=== PATIENT | male | born 1945 | race Caucasian/White ===

== ENCOUNTER 2017-02-03 08:17 | Day surgery (SDC) | payer MEDICARE, BC ==
--- NOTE | ~2017-02-03 | EGD ---
EGD REPORT [facility] [address] [place] [address] NAME: DUC MORA : 41 STATUS : REG [facility]#: [id number] AGE: 72 ADM/REG DATE : 02/03/17 MR#: [id number] REPORT SERV DATE: 02/03/17 DICTATED BY: JOHN ADIDSON DATE: 02/03/17 REPORT STATUS : Draft TRANSCRIBED BY: [employer] DATE: 02/03/17 [facility] Patient Name: Duc Mora Date of : 1945 Attending MD: JOHN ADDISON, Procedure Date No Time: 02/03/2017 Procedure: Colonoscopy Indications: Chronic diarrhea Referring MD: JOHNY VALDEZ Medicines: Monitored Anesthesia Care Complications: No immediate complications. Estimated blood loss: None. Procedure: Pre-Anesthesia Assessment: - ASA Grade Assessment: III - A patient with severe systemic disease. After I obtained informed consent, the scope was passed under direct vision. Throughout the procedure, the patient's blood pressure, pulse, and oxygen saturations were monitored continuously. The CF [id number] was introduced through the anus and advanced to the terminal ileum. The colonoscopy was performed without difficulty. The patient tolerated the procedure well. The quality of the bowel preparation was adequate. Findings: The perianal and digital rectal examinations were normal. The terminal ileum appeared normal. A sessile polyp was found in the cecum. The polyp was 2 mm in size. The polyp was removed with a cold biopsy forceps. Resection and retrieval were complete. Verification of patient identification for the specimen was done. Estimated blood loss was minimal. A sessile polyp was found in the ascending colon. The polyp was 5 mm in size. The polyp was removed with a cold snare. Resection and retrieval were complete. Verification of patient identification for the specimen was done. Estimated blood loss was minimal. A sessile polyp was found in the ascending colon. The polyp was 12 mm in size. The polyp was removed with a hot snare. Resection and retrieval were complete. Verification of patient identification for the specimen was done. Estimated blood loss was minimal. A sessile polyp was found in the ascending colon. The polyp was 7 mm in size. The polyp was removed with a hot snare. Resection and retrieval were complete. Verification of patient identification for the specimen was done. Estimated blood loss was minimal. Inflammation characterized by erythema, friability and serpentine ulcerations was found as large patches surrounded by normal mucosa in the transverse colon. This was moderate to severe in severity. Biopsies EGD REPORT [address] [place]. [address] NAME: DUC MORA : 41 STATUS : REG [facility] PAT#: [id number] AGE: 72 ADM/REG DATE : 02/03/17 MR#: [id number] REPORT SERV DATE: 02/03/17 DICTATED BY: JOHN ADDISON DATE: 02/03/17 REPORT STATUS : Draft TRANSCRIBED BY: [employer] DATE: 02/03/17 were taken with a cold forceps for histology. Verification of patient identification for the specimen was done. Estimated blood loss was minimal. Two sessile polyps were found in the transverse colon. These were within areas of inflammation. The polyps were 12 to 15 mm in size. These polyps were removed with a hot snare. Resection and retrieval were complete. Verification of patient identification for the specimen was done. Estimated blood loss was minimal. Three sessile polyps were found in the descending colon. The polyps were 5 to 7 mm in size. These polyps were removed with a hot snare. Resection and retrieval were complete. Verification of patient identification for the specimen was done. Estimated blood loss was minimal. Many small-mouthed diverticula were found in the sigmoid colon and in the descending colon. Internal hemorrhoids were found, and they were Grade II (internal hemorrhoids that prolapse but reduce spontaneously). Impression: - The examined portion of the ileum was normal. - One 2 mm polyp in the cecum. Resected and retrieved. - One 5 mm polyp in the ascending colon. Resected and retrieved. - One 12 mm polyp in the ascending colon. Resected and retrieved. - One 7 mm polyp in the ascending colon. Resected and retrieved. - Inflammation was found in the transverse colon secondary to colitis. Biopsied. - Two 12 to 15 mm polyps in the transverse colon. Resected and retrieved. - Three 5 to 7 mm polyps in the descending colon. Resected and retrieved. - Diverticulosis in the sigmoid colon and in the descending colon. - Internal hemorrhoids. Recommendation: - Patient has a contact number available for emergencies. The signs and symptoms of potential delayed complications were discussed with the patient. Return to normal activities tomorrow. Written discharge instructions were provided to the patient. - Return to previous diet. - Continue present medications. - Await pathology results. Procedure Code(s): --- Professional --- 95029, Colonoscopy, flexible, proximal to splenic flexure; with removal of tumor(s), polyp(s), or other EGD REPORT [address] [address] NAME: DUC MORA : 41 STATUS : REG [facility]#: [id number] AGE: 72 ADM/REG DATE : 02/03/17 MR#: [id number] REPORT SERV DATE: 02/03/17 DICTATED BY: JOHN ADDISON DATE: 02/03/17 REPORT STATUS : Draft TRANSCRIBED BY: [employer] DATE: 02/03/17 lesion(s) by snare technique [id number], 59, Colonoscopy, flexible, proximal to splenic flexure; with biopsy, single or multiple Diagnosis Code(s): --- Professional --- K64.1, Second degree hemorrhoids K57.30, Diverticulosis of large intestine without perforation or abscess without bleeding D12.4, Benign neoplasm of descending colon D12.3, Benign neoplasm of transverse colon D12.2, Benign neoplasm of ascending colon D12.0, Benign neoplasm of cecum K52.9, Noninfective gastroenteritis and colitis, unspecified CPT copyright 2013 [employer]. All rights reserved. The codes documented in this report are preliminary and upon munitions factory worker review may be revised to meet current compliance requirements. JOHN AZAEL, 02/03/2017 11:56 AM Number of Addenda: 0 Note Initiated On: 02/03/2017 10:52 AM Scope Withdrawal Time 0 hours 41 minutes 10 seconds [id number] [id number]
[~2017-02-03 08:17] MED LIST: ASA5GR PO; CAT1 PO; CLARITD24H PO; COLCH6 PO; DIOVAN HC2 PO; DIOVAN320 MG PO; FLORINEF0.1 MG PO; HUMULIN N1 ML SC; HUMULIN R1 ML SC; HYT5 PO; L40 PO; LISINOPRIL40 MG PO; LOP25 PO; MAGNEBIND PO; MUCINEX D1 TA1 OR; NORV10 PO; PHOSLO PO; PRIN10 PO; PROCRIT10 IV; PROCRIT10 SC; PROCRIT2 SC; RE DUALVI1 PO; RENA-VITE PO; RENVELA800 MG PO; SEVE800T PO; TUMSROLL PO; VITAMIN D1000 UNI1 PO; VITD PO; Z100 PO
[2017-02-03 08:53] LABS: CO2 (CARBON DIOXIDE) 28 MMOL/L (24-34); CREATININE 8.44 MG/DL (0.70-1.30); GFR AFRICAN AMERICAN 6 ML/MIN (>=60); GFR NON AFRICAN AMERICAN 6 ML/MIN (>=60); GLUCOSE, SERUM 105 MG/DL (60-99); POTASSIUM, SERUM 4.4 MMOL/L (3.5-5.3); SODIUM, SERUM 141 MMOL/L (135-148)
[2017-02-03 08:54] LABS: BUN (BLOOD UREA NITROGEN) 38 MG/DL (6-23); CALCIUM, SERUM 8.6 MG/DL (8.5-10.4); CHLORIDE, SERUM 96 MMOL/L (96-112)
[2017-02-04] MEDS ORDERED: RENA-VITE PO (21:58)
[2017-02-04] MEDS ORDERED: NORV10 PO (21:58)
[2017-02-04] MEDS ORDERED: TOPXL50 PO (21:59)
[2017-02-04] MEDS ORDERED: COMBIGAN0.2 MG/0.5 OPH (22:00)
[2017-02-04] MEDS ORDERED: AZOPT OPH (22:00)
[2017-02-04] MEDS ORDERED: XALAT OPH (22:00)
[2017-02-04] MEDS ORDERED: TUMSROLL PO (22:01)
[2017-02-04] MEDS ORDERED: PLAVIX PO (22:01)
[2017-02-04] MEDS ORDERED: APRES25 PO (22:01)
[2017-02-04] MEDS ORDERED: ALIGN4 MG PO (22:02)
[2017-02-04] MEDS ORDERED: ALLEGRA180 PO (22:02)
[2017-07-26] MEDS ORDERED: EPOGEN (06:56)
[2017-07-26] MEDS ORDERED: ARANESP100 (06:57)
[2017-07-30] MEDS ORDERED: FLORASTOR250 MG PO (13:33)
[2017-07-30] MEDS ORDERED: LEVAQUIN5T PO (13:34)
[2017-07-30] MEDS ORDERED: FLAG500TAB PO (13:35)
== END 2017-02-03 23:59 | disposition home or self-care (01) ==
LOC: DMU 08:17
PROVIDERS: Anesthesiology; Internal Medicine Gastroenterology
PROC: 0DBL8ZX Excision of Transverse Colon, Via Natural or Artificial Opening Endoscopic, Diagnostic (ICD-10-PCS; 2017-02-03)
PROC: 0DBM8ZX Excision of Descending Colon, Via Natural or Artificial Opening Endoscopic, Diagnostic (ICD-10-PCS; 2017-02-03)
PROC: 0DBK8ZX Excision of Ascending Colon, Via Natural or Artificial Opening Endoscopic, Diagnostic (ICD-10-PCS; principal; 2017-02-03 10:00)
PROC: 0DBH8ZX Excision of Cecum, Via Natural or Artificial Opening Endoscopic, Diagnostic (ICD-10-PCS; 2017-02-03 10:00)
DX: D12.0 Benign neoplasm of cecum (principal); D12.3 Benign neoplasm of transverse colon; D12.2 Benign neoplasm of ascending colon; D12.4 Benign neoplasm of descending colon; K64.1 Second degree hemorrhoids; K57.30 Diverticulosis of large intestine without perforation or abscess without bleeding; K52.9 Noninfective gastroenteritis and colitis, unspecified; M19.90 Unspecified osteoarthritis, unspecified site; M10.9 Gout, unspecified; I12.0 Hypertensive chronic kidney disease with stage 5 chronic kidney disease or end stage renal disease; I25.2 Old myocardial infarction; E11.22 Type 2 diabetes mellitus with diabetic chronic kidney disease; N18.6 End stage renal disease; Z86.73 Personal history of transient ischemic attack (TIA), and cerebral infarction without residual deficits; Z88.0 Allergy status to penicillin; Z88.2 Allergy status to sulfonamides; Z88.5 Allergy status to narcotic agent; Z95.0 Presence of cardiac pacemaker; Z88.1 Allergy status to other antibiotic agents; Z88.8 Allergy status to other drugs, medicaments and biological substances; Z79.899 Other long term (current) drug therapy; Z98.42 Cataract extraction status, left eye; Z98.890 Other specified postprocedural states
CPT/HCPCS: 80048; 88305

== ENCOUNTER 2017-02-04 20:09 | Emergency (ER) | payer MEDICARE, BC ==
[2017-02-04 16:53] LABS: BASOPHILS 0.4 %; BASOPHILS ABSOLUTE 0.04 10/3/uL (0.0-0.16); EOSINOPHILS 3.5 %; EOSINOPHILS ABSOLUTE 0.32 10/3/uL (0.0-0.53); HEMOGLOBIN 11.4 g/dL (13.6-17.8); IMMATURE GRANULOCYTES 0.1 %; IMMATURE GRANULOCYTES ABSOLUTE 0.01 10/3/uL (0.0-0.11); LYMPHOCYTES 11.7 %; LYMPHOCYTES ABSOLUTE 1.08 10/3/uL (0.67-4.30); MEAN CORPUSCULAR HEMOGLOB 31.4 pg (26.0-34.0); MONOCYTES 7.8 %; MONOCYTES ABSOLUTE 0.72 10/3/uL (0.21-1.20); NEUTROPHILS 76.5 %; NEUTROPHILS ABSOLUTE 7.07 10/3/uL (2.02-8.40); PLATELET COUNT 194 10/3/uL (150-400); RBC DISTRIBUTION WIDTH 14.9 % (12.0-16.0); RED CELL COUNT 3.63 10/6/uL (4.7-6.1)
[2017-02-04 16:56] LABS: ER CBC TAT 0 Hrs 09 Mins; HEMATOCRIT 34.5 % (40.0-51.0); MANUAL DIFF NO %; WHITE BLOOD CELLS 9.2 10/3/uL (4.5-10.5)
[2017-02-04 17:04] LABS: INTERNATIONAL NORMAL RATI 1.2 UNITS (-); PROTIME (NOT ORD) 15.4 SEC (12.0-14.5)
[2017-02-04 17:09] LABS: A/G RATIO 1.1 (0.7-1.9); ALBUMIN 3.6 G/DL (3.5-5.0); ALKALINE PHOSPHATASE 70 U/L (45-117); BUN (BLOOD UREA NITROGEN) 50 MG/DL (6-23); CALCIUM, SERUM 8.3 MG/DL (8.5-10.4); CHLORIDE, SERUM 101 MMOL/L (96-112); CO2 (CARBON DIOXIDE) 21 MMOL/L (24-34); GFR AFRICAN AMERICAN 5 ML/MIN (>=60); GFR NON AFRICAN AMERICAN 4 ML/MIN (>=60); GLOBULIN 3.3 G/DL (2.5-4.1); GLUCOSE, SERUM 106 MG/DL (60-99); POTASSIUM, SERUM 4.2 MMOL/L (3.5-5.3); SGOT(AST) 14 U/L (5-40); SGPT(ALT) 13 U/L (5-65); SODIUM, SERUM 137 MMOL/L (135-148); TOTAL BILIRUBIN 0.4 MG/DL (0-1.2); TOTAL PROTEIN 6.9 G/DL (6.0-8.5)
[2017-02-04] MEDS ORDERED: NORV10 PO (21:58)
[2017-02-04] MEDS ORDERED: RENA-VITE PO (21:58)
[2017-02-04] MEDS ORDERED: TOPXL50 PO (21:59)
[2017-02-04] MEDS ORDERED: XALAT OPH (22:00)
[2017-02-04] MEDS ORDERED: COMBIGAN0.2 MG/0.5 OPH (22:00)
[2017-02-04] MEDS ORDERED: AZOPT OPH (22:00)
[2017-02-04] MEDS ORDERED: PLAVIX PO (22:01)
[2017-02-04] MEDS ORDERED: APRES25 PO (22:01)
[2017-02-04] MEDS ORDERED: TUMSROLL PO (22:01)
[2017-02-04] MEDS ORDERED: ALLEGRA180 PO (22:02)
[2017-02-04] MEDS ORDERED: ALIGN4 MG PO (22:02)
[2017-07-26] MEDS ORDERED: EPOGEN (06:56)
[2017-07-26] MEDS ORDERED: ARANESP100 (06:57)
[2017-07-30] MEDS ORDERED: FLORASTOR250 MG PO (13:33)
[2017-07-30] MEDS ORDERED: LEVAQUIN5T PO (13:34)
[2017-07-30] MEDS ORDERED: FLAG500TAB PO (13:35)
== END 2017-02-04 22:18 | disposition home or self-care (01) ==
LOC: ER 20:09
PROVIDERS: Emergency Medicine
DX: K91.840 Postprocedural hemorrhage of a digestive system organ or structure following a digestive system procedure (principal); E11.22 Type 2 diabetes mellitus with diabetic chronic kidney disease; I12.0 Hypertensive chronic kidney disease with stage 5 chronic kidney disease or end stage renal disease; N18.6 End stage renal disease; Z95.0 Presence of cardiac pacemaker; Z88.0 Allergy status to penicillin; Z88.2 Allergy status to sulfonamides; Z88.8 Allergy status to other drugs, medicaments and biological substances; Z79.899 Other long term (current) drug therapy
CPT/HCPCS: 36415; 74176; 80053; 85025; 85610; 85730; 86850; 86900; 86901; 93005; 99284